=== PATIENT | male | born 1985 | race Caucasian/White ===

== ENCOUNTER 2017-05-27 15:35 | Emergency (ER) | payer OTHER ==
[~2017-05-27] VITALS: Ht 157.5 cm; Wt 78.5 kg
[2017-05-27 15:37] VITALS: Ht 157.5 cm; Wt 78.5 kg
[2017-05-27] MEDS ORDERED: HYDROCODONE/APAP (10/325) TAB PO ONE (16:00)
[2017-05-27] MEDS ORDERED: DIPHTH/TET/ACEL PERTUSS (ADULT) 0.5 ML VIAL IM* ONE (16:00)
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
--- NOTE | 2017-05-27 16:40 | RADRPT ---
PROCEDURE: XR Tibia and Fibula. CLINICAL INDICATION: Pain and swelling. Injury. TECHNIQUE: Two views of the left tibia and fibula are available for review. COMPARISON: None available FINDINGS: There is no evidence of acute fracture dislocation. Joint spaces are maintained. The bony mineralization is normal. No radiopaque foreign body is identified. The soft tissues are unremarkable. IMPRESSION: 1. Unremarkable left tibia and fibula x-ray series. RPTAT: QQ .Luis Allen MD, MD Date Time Electronically viewed and signed by .Luis Allen MD, MD on 05/27/2017 16:39 .M/
[2017-05-27] MEDS ORDERED: LIDOCAINE 1%/EPI 30 ML INJ INJ STA (17:13)
[2017-05-27] MEDS ORDERED: IBUP800T25 PO (18:09)
[2017-05-27] MEDS ORDERED: CEPH-443 PO (18:09)
[2017-05-27] MEDS ORDERED: BACI28.421 TOP (18:10)
[2017-05-27] MEDS ORDERED: BACITRACIN 0.9 GM OINT TOP ONE (18:30)
== END 2017-05-27 18:59 | disposition home or self-care (01) ==
LOC: FTE 15:35
DX: S81.812A Laceration without foreign body, left lower leg, initial encounter (principal); W22.8XXA Striking against or struck by other objects, initial encounter; Y92.9 Unspecified place or not applicable; Z23 Encounter for immunization
CPT/HCPCS: 73590; 90471; 90715